=== PATIENT | male | born 1945 | race Caucasian/White ===

== ENCOUNTER → 2024-01-24 12:55 | Outpatient (REF) | payer MEDICARE, SELFPAY | LOC: MRI 3T 12:55 | PROVIDERS: ATTENDING PHYSICIAN Specialist; FAMILY PHYSICIAN Internal Medicine | DX: C61 Malignant neoplasm of prostate (principal) | CPT/HCPCS: 72197; A9575 ==

== ENCOUNTER → 2024-06-26 08:28 | Outpatient (REF) | payer MEDICARE, SELFPAY | LOC: HWRCS 08:28 | PROVIDERS: ATTENDING PHYSICIAN Internal Medicine; FAMILY PHYSICIAN Internal Medicine | DX: I10 Essential (primary) hypertension (principal); Z95.2 Presence of prosthetic heart valve | CPT/HCPCS: 93306 ==

== ENCOUNTER 2025-03-14 05:29 | Inpatient (IN) | payer MEDICARE, SELFPAY ==
[2025-03-14] VITALS (12 sets, daily range): BP systolic 134–166; BP diastolic 76–90; PULSE 64; O2SAT 98; BMI 28.8
--- NOTE | 2025-03-14 02:47 | ED.CVA ---
History of Present Illness
General
Chief Complaint: CVA/TIA Symptoms
Source: patient, spouse and ambulance crew
Exam Limitations: none
Time Seen by Provider: 03/14/25 02:37
Nursing documentation reviewed up to this point in time: agreed with
Onset of Stroke Symptoms
Onset of symptoms known: No
Date of onset of symptoms: 03/14/25
Time pt last seen normal is known: Yes
Date last time pt seen normal: 03/13/25
Time last time pt seen normal: 21:30
History of Present Illness
History of Present Illness:
80-year-old male with a past medical history of hypertension, hyperlipidemia, atrial fibrillation (status post ablation 10 years ago, no issues since reportedly, not on blood thinners), aortic stenosis status post AVR who presents to the ER with his
for evaluation of weakness, balance issues, speech disturbance. Patient reports that he was in his normal state of health when he went to bed last night at 9:30 PM. He says that he woke up to go to the bathroom at 12:45 AM and noticed that he
was having left-sided weakness, balance issues, speech issues. EMS was called to bring him to the hospital. He reports symptoms are improving but have not resolved. Complains of some slurred speech, balance issues and some persistent weakness arm
greater than leg. He does work some mild dizziness. He denies any headache or neck pain. He denies feeling numbness in his extremities or in his face. He denies any change in his vision. He says he has never had similar symptoms in the past.
He denies being on any blood thinners.
Review of Systems
Review of Systems
All Other Systems: ROS reviewed and negative except as documented in HPI and ROS
Constitutional: Denies fever
Respiratory: Denies trouble breathing
Cardiac: Denies chest pain
ABD/GI: Denies abdominal pain
: Denies flank pain
Musculoskeletal: Denies neck pain or back pain
Neurological: Reports dizzy and weakness; Denies headache or numbness
Phy Exam
Physical Exam
Physical Exam:
General: Awake, alert, oriented x3; no acute distress
Head: Normocephalic, atraumatic
Eyes: Conjunctiva normal, EOMI
Throat: Airway intact, handling secretions
Neck: Trachea midline, supple without meningismus
Lungs: Clear to auscultation bilaterally, no wheezing, rales, rhonchi
Heart: Regular rate and rhythm, no murmurs, gallops, or rubs
Abd: Soft, non distended, nontender
Neuro: Patient has mild right facial droop; cranial nerves otherwise intact; no limb ataxia; no drift in the lower extremities, very slight drift left upper extremity and 4/5 strength on senior cyber intelligence analyst strength in the left upper extremity compared to 5/5 on
the right, sensory exam grossly intact, mild dysarthria but no aphasia
Skin: no rash
Extremities: No edema in extremities, equal pulses in all extremities
Scores
NIH Stroke Score
Level of Consciousness: 0 - Alert
LOC Questions: 0-Answers both correctly
LOC Commands: 0-Performs both correctly
Best Horizontal Gaze: 0-Normal
Visual Tripp: 0=Normal, no visual loss
Facial Palsy: 1=Minor paralysis
Motor - Right Arm: 0=No drift 10 seconds
Motor - Left Arm: 1=Drift < 10 seconds
Motor - Right Le-No drift 5 seconds
Motor - Left Le-No drift 5 seconds
Limb Ataxia: 0-Absent
Sensation: 0-Normal
Best Language: 0-No aphasia
Dysarthria: 1-Mild slurring
Extinction and Inattention: 0-No abnormality
NIH Total Score:: 3
Thrombolytic Contraindication
Inclusion and Exclusion criteria reviewed: Yes
Reasons for NON-Tx with Thrombolytics ABSOLUTE Exclusions: Greater than 4.5 hrs from onset of sxs
Course
Orders/Labs/Results
Orders:
Orders
03/14/25 02:43
CT HEAD STROKE ALERT W/o Cont Urgent
Comment:
Reason For Exam: L SIDED WEAKNESS
CT HEAD/NECK ANG STROKE ALERT Urgent
Comment:
Reason For Exam: L SIDED WEAKNESS
03/14/25 02:45
Complete Blood Count/With Diff Urgent
Comprehensive Metabolic Panel Urgent
PTT Urgent
Prothrombin Time Urgent
03/14/25 02:46
Electrocardiogram (*1) Urgent
Reason for Study: TIA/Stroke
CT BRAIN PERF STROKE ALERT Urgent
Comment:
Reason For Exam: left weakness, facial droop
EKG- Treatment ONCE
03/14/25 03:35
Aspirin 325 mg PO NOW STA
Clopidogrel Bisulfate [Plavix] 300 mg PO NOW STA
Abnormal Lab Results
03/14/25
02:45
MCV 94.3 H fL
(80.0-94.0)
MCH 31.5 H pg
(27.0-31.0)
MPV 11.4 H fL
(7.4-10.4)
Absolute Monos (auto) 0.7 H 10^3/uL
(0.1-0.6)
Eosinophils % 7.3 H %
(0-6)
BUN 25 H mg/dl
(9-20)
Glucose 112 H mg/dl
(70-99)
03/14/25 02:45
03/14/25 02:45
Vital Signs
Initial and Last Documented VS:
Initial Vital Signs
Temp Pulse Resp BP Pulse Ox
36.7 C 61 20 166/85 95
03/14/25 02:26 03/14/25 02:26 03/14/25 02:26 03/14/25 02:26 03/14/25 02:26
Last Documented Vital Signs
Temp Pulse Resp BP Pulse Ox
36.7 C 59 17 139/83 96
03/14/25 02:26 03/14/25 03:52 03/14/25 03:52 03/14/25 03:52 03/14/25 03:52
MDM/Problems Addressed
Differential Diagnosis Includes:
TIA/CVA, brain bleed, brain mass
MDM/Problems Addressed:
80-year-old male with history as noted presents for evaluation of left-sided weakness and speech disturbance, balance issues. Last normal 9:30 PM before bed, woke up 12:45 AM to go to the bathroom and had symptoms. Symptoms have improved since
waking up but have not resolved. Hypertensive but otherwise normal vitals. Physical exam as above�NIH stroke scale 3. Stroke alert called after my initial assessment. Will send for a CT head, CTA head and neck, CT perfusion study. Usual labs
sent off. Will check EKG. Will discuss with neurology. Reassess after the above.
Discussed with radiologist�CT head negative for any acute hemorrhage, CT angio and perfusion are pending. [facility] for [facility]. Recommended dual antiplatelet
therapy, admission for continued management of suspected acute stroke pending CT angio results to rule out large vessel occlusion.
CTA shows no large vessel occlusion. Reviewed with neurology, proceed with plan to treat with dual antiplatelet therapy. Admit for continued management. Case discussed with hospitalist for admission.
Chronic conditions affecting care:
Atrial fibrillation, hypertension, hyperlipidemia
Acute Exacerbation and/or Progression of Chronic Illness:
Acutely hypertensive�permissive in the setting of suspected stroke
Acute Exacerbation and/or Progression of Chronic Illness: HTN
*Radiology
Radiology exam reviewed: preliminary read by ED provider and radiology read reviewed
*Pulse Oximetry
SaO2: 95
Oxygen Mode of Delivery: Room air
Patient hypoxic: no (95%)
*Critical Care Note
Total Time (30-74mins, 75-104mins- exclusive of procedures): Not Applicable
Data Reviewed
Source: patient and spouse
Patient Management
Discussion with other providers: Hospitalist (Discussed with hospitalist) and Enlisted Advisor (Discussed with neurology)
Escalation/DeEscalation of care consider admission/obs:
Admission indicated
ED Attending Note
-
Portions of this chart may have been created with voice recognition software.� Occasional wrong word or��sound alike� substitutions may have occurred due to the inherent limitations of voice recognition software.
Discharge Plan
Departure
Patient Disposition: Admit
Date of Disposition: 03/14/25
Time of Disposition: 04:04
Admit to doctor: Otis
Presentation/result/management discussed w/ accepting MD/DO: Hospitalist
Discharge Problem:
Acute CVA (cerebrovascular accident)
Prescriptions:
No Action
aspirin 81 mg Tablet
81 mg PO Q48H
Lotemax
ophthalmic (eye) DAILY
Rx Instructions:
both eyes
amlodipine
PO DAILY
atorvastatin
PO DAILY
Rx Instructions:
unknown dosage
finasteride
PO DAILY
latanoprost
ophthalmic (eye) HS
metoprolol succinate
PO DAILY
timolol
ophthalmic (eye) DAILY
Referrals:
Dileep Smith MD [Family Provider, Cardiology]
Interventions
Interventions:
*Risk Screen - Suicide Last Done: 03/14/25 02:26
*General Assessment Last Done: 03/14/25 02:26
*Neglect/Abuse Screening Last Done: 03/14/25 02:26
*ED- Fall Risk Assessment Last Done: 03/14/25 02:26
*ED COVID-19 Vaccine History Last Done: 03/14/25 02:26
ED- Neurological Assessment Last Done: 03/14/25 02:45
ED Swallowing Screen Last Done: 03/14/25 03:44
Discharge Date and Time
Print Language: ANGUILLAN
[2025-03-14 03:21] LABS: INR 0.96; PT 13.3 Sec (11.4-14.6)
[2025-03-14 03:22] LABS: APTT 25.5 Sec (23.4-35.0)
[2025-03-14 03:33] LABS: ALT (SGPT) 26 U/L (0-50); AST (SGOT) 23 U/L (17-59); Albumin 4.4 g/dl (3.5-5.0); Alkaline Phosphatase 49 U/L (38-126); Blood Urea Nitrogen 25 mg/dl (9-20); Calcium 9.7 mg/dl (8.4-10.2); Carbon Dioxide 30 mmol/L (22-30); Chloride 105 mmol/L (98-107); Glucose 112 mg/dl (70-99); Potassium 4.5 mmol/L (3.5-5.1); Sodium 140 mmol/L (135-145); Total Protein 6.9 g/dl (6.3-8.2); eGFR > 60.00
[2025-03-14 03:40] LABS: Hematocrit 50.0 % (39.0-52.0); Hemoglobin 16.7 g/dL (13.0-18.0); Mean Corp Hgb Conc. 33.4 g/dL (33.0-37.0); Mean Corpuscular Volume 94.3 fL (80.0-94.0); Nucleated Red Blood Cells % 0 % (-); Platelet Count 203 10^3/uL (130-400); Red Cell Dist. Width 13.2 % (11.5-14.5)
[2025-03-14] MEDS: ASPIRIN 325 MG PO (03:46)
[2025-03-14] MEDS: PLAVIX 300 MG PO (03:46)
--- NOTE | 2025-03-14 05:18 | HPS.HSE ---
Family Physician
-
Family Physician: Dileep Smith MD
Chief Complaint
-
L weakness
History of Present Illness
Patient is a 80y L hand dominant M with PMH significant for aortic stenosis, hypertension and A-Flutter s/p ablation who presents to ED complaining of left sided weakness and slurred speech. Patient states that he felt well this PM when he went
to bed around 9-9:30. He woke at 12:20 AM with difficulty moving his L side. He lie there for about one hour waiting for symptoms to improve. When they did not he woke his and 911 was called.
Patient noted weakness of the L arm and L leg. He noted slurred / thickened speech. His symptoms have all significantly improved from initial onset and he feels 'about 90%' at present.
Patient denies any prior h/o stroke, SC, etc.
Medical History
Past Medical History
Past Medical History: Reports Other
Additional Past Medical History:
Aortic Stenosis s/p AVR
Atrial Flutter s/p Ablation
Hypertension
Prostate Cancer
Glaucoma
Past Surgical History: Reports Other
Additional Past Surgical History:
BioAVR (x 2)
A-Flutter Ablation
Corneal Transplant
Retina Surgery
Achilles Tendon Repair
Appendectomy
Social History
Tobacco: Non-smoker
Alcohol: Daily (1-2 glasses of wine daily.)
Drug: None
Family History
Family History: Not pertinent
Allergies / Home Medications
Allergies reflects when Allergies were last updated in [employer].
Home Medications with original date entered in [employer]
Allergy/Medication List:
Allergies
Allergy/AdvReac Type Severity Reaction Status Date / Time
No Known Allergies Allergy Verified 03/14/25 02:40
Home Medications
Patient does not know his meds with dose / frequency.
If medication reconciliation has not been performed, why?: Medication List N/A
Review of Systems
-
History Source: Patient
A 12 point ROS was completed and negative except as noted: Yes
Constitutional: Denies Fever or Chills
Respiratory: Denies Cough or Trouble Breathing
Cardiac: Denies Chest Pain or Palpitations
Abdomen/GI: Denies Abdominal Pain, Nausea, Vomiting or Diarrhea
: Denies Dysuria or Frequency
Musculoskeletal: Denies Joint Pain or Edema
Neurological: Reports Weakness and Other (slurred speech.); Denies Dizzy or Headache
Physical Exam
Vital Signs
Vital Signs
Temp Pulse Resp BP Pulse Ox
98.1 F 60 22 134/80 91
03/14/25 02:26 03/14/25 05:00 03/14/25 05:00 03/14/25 05:00 03/14/25 05:00
Physical Exam
General: Other (80y M in no acute distress.)
HEENT: Moist mucous membranes and PERRLA
Respiratory: Clear; No Wheezes, Rales or Rhonchi
Cardiac: S1/S2, Regular Rhythm and Murmur (II/ GENA)
GI: Soft, Non Tender, Non Distended and Normal Bowel Sounds
Musculoskeletal: No Clubbing, No Cyanosis and No Edema
Neuro: AO x 3 and Other (Mild L facial droop. Mild dysarthria. Strength seems intact / symmetric at present. Sensation intact.)
Laboratory Results
-
03/14/25 02:45
03/14/25 02:45
Laboratory Results
PT 13.3 Sec (11.4-14.6) 03/14/25 02:45
INR 0.96 03/14/25 02:45
APTT 25.5 Sec (23.4-35.0) 03/14/25 02:45
Total Bilirubin 0.8 mg/dl (0.2-1.3) 03/14/25 02:45
AST 23 U/L (17-59) 03/14/25 02:45
ALT 26 U/L (0-50) 03/14/25 02:45
Alkaline Phosphatase 49 U/L (38-126) 03/14/25 02:45
Impression/Plan
-
A/P: Patient is a 80y M with PMH significant for hypertension, aortic stenosis and A-Flutter (s/p ablation) who presents to ED after waking early this AM with L sided weakness.
CVA / TIA
- Admit for further evaluation and treatment.
- Symptoms certainly sound c/w CVA with dysarthria, L upper and lower extremity weakness and ataxia.
- ED reviewed with [facility] and TNK not recommended based on last known normal / out of window.
- Thankfully, symptoms are significantly improved at present - though not fully resolved.
- DAPT. Check lipids, A1C. etc.
- MRI in AM.
- Neurology evaluation.
- PT / OT / Speech evaluations.
- Need formal med rec and then resume / continue BP medications as appropriate.
- Follow serial exams for any new / worsening symptoms.
Hypertension
- Reconcile meds as noted above. Adjust regimen as needed for goal of normotension prior to discharge.
History of A-Flutter s/p Ablation
Aortic Stenosis s/p AVR x 2
- Check Echo.
- Monitor on telemetry for any evidence of arrhythmia.
Prostate Cancer
- Bladder scan protocol.
- Not on any active treatment beyond finasteride.
DVT Prophylaxis: SCDs
Code Status: Full
[2025-03-14 06:02] LABS: Hematocrit 48.2 % (39.0-52.0); Hemoglobin 16.4 g/dL (13.0-18.0); Mean Corp Hgb Conc. 34.0 g/dL (33.0-37.0); Mean Corpuscular Volume 90.9 fL (80.0-94.0); Platelet Count 190 10^3/uL (130-400); Red Cell Dist. Width 13.2 % (11.5-14.5)
[2025-03-14 06:25] LABS: Blood Urea Nitrogen 19 mg/dl (9-20); Calcium 9.0 mg/dl (8.4-10.2); Carbon Dioxide 27 mmol/L (22-30); Chloride 106 mmol/L (98-107); Glucose 107 mg/dl (70-99); HDL Cholesterol 56 mg/dl; LDL Cholesterol, Calculated 69 mg/dl; Potassium 4.3 mmol/L (3.5-5.1); Sodium 138 mmol/L (135-145); Very Low Density Lipoprotein 24 mg/dl (0-30); eGFR > 60.00
--- NOTE | 2025-03-14 07:45 | W.PN.HOSP.TC ---
Addendum entered and electronically signed by Warner Ortega MD 03/14/25 08:25:
Moderate to large volume of calcified plaque in the carotid bulb. Estimated luminal diameter reduction of less than 50%. - cont ASA/Statin
Original Note:
Today's Communication/Plan
-
see PN
Assessment / Plan
Assessment / Plan
80yo M with PMHx of CAD s/p CABG, glaucoma, HLD, HTN, BPH came with LUE and LLE weakness and dysarthria started after he woke up. CTA head showed no LVH and no clinically significant carotid stenosis. Symptoms started to improve. Admitted for CVA.
Patient was not compliant with ASA at home taking it q48h
A/P:
#CVA
Neurochecks
ASA, Plavix, Statin, emphasized importance to adhere to Rx schedule
permissive HTN during firtst 24h
Echo
Telemetry without clinically significant arrhythmia
Neurology consult
MRI brain
PT/OT
VENDOR MANAGEMENT CONSULTANT
LDL 69
HgbA1c and TSH pending
#CAD, s/p CABG
#Essential HTN
#Glaucoma
cont home meds
DVT ppx SCDs
Full code
I have spent at least 56min reviewing chart, test results, communication with consultants and providing direct patient care
Anticipated Discharge: 24 - 48 hours
Subjective/Interval History
-
Date of Service: March 14, 2025
Objective Data
-
Labs:
Laboratory Results
03/14/25 03/14/25
02:45 05:33
WBC 9.3 8.0
Hgb 16.7 16.4
Hct 50.0 48.2
Plt Count 203 190
PT 13.3
INR 0.96
APTT 25.5
Sodium 140 138
Potassium 4.5 4.3
Chloride 105 106
Carbon Dioxide 30 27
BUN 25 H 19
Creatinine 1.0 0.9
Glucose 112 H 107 H
Calcium 9.7 9.0
Total Bilirubin 0.8
AST 23
ALT 26
Alkaline Phosphatase 49
Vital Signs:
Vital Signs
Temp Pulse Resp BP Pulse Ox
97.7 F 60 18 152/80 96
03/14/25 06:45 03/14/25 06:45 03/14/25 06:45 03/14/25 06:45 03/14/25 06:45
I&O
03/13/25 03/14/25 03/15/25
06:59 06:59 06:59
Output Total 325 / 325
Balance -325 / -325
Review of Systems
-
History Source: Patient
All other systems: Reviewed and negative
Physical Exam
-
General: No Apparent Distress
HEENT: Normocephalic
Respiratory: Clear to Auscultation
Cardiac: Regular Rhythm
GI: Soft
Neuro: Awake, Alert, Oriented and AO x 3
Hematologic / Lymphatic: Other (LUE and LLE strength 4/5, mild assymetry of the face )
Psych: Calm
[2025-03-14 09:18] LABS: Glycohemoglobin (HgbA1c) 5.7 % (4.0-5.6)
--- NOTE | 2025-03-14 09:21 | CON.NEURO4 ---
Addendum entered and electronically signed by Anthony Butt MD 03/23/25 15:33:
Diagnosis of cytotoxic edema (minimally seen by MRI of brain) was appropriate.
Addendum entered and electronically signed by Anthony Butt MD 03/14/25 14:07:
Studies reviewed.
I have personally examined the patient. I reviewed and agree with the LATEX FOAM WORKER's Note.
My addenda:
Awake, alert, interactive. No acute distress.
Speech minimally thick, at times.
Follows 2-step requests w/o difficulty. No tremor.
Extra-ocular movements grossly intact.
Facial movements full and symmetric. Hearing intact to normal conversational volume.
Normal UE movements bilaterally.
Neck: full ROM.
Chest: no dyspnea
Heart: no JVD
Ext: (-) Clubbing, (-) Cyanosis, (-) Edema
IMPRESSIONS/RECOMMENDATIONS:
Abrupt onset of dominant side (left-sided) weakness with dysarthria
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
Would avoid use of dual antiplatelet therapy due to the above suggested amyloid angiopathy
Instead, would advance the patient's at home aspirin 81 mg every other day to dosing of aspirin 81 mg/day
Advance atorvastatin from 10 mg to 20 mg
Continue rehabilitation evaluations and treatment
D/W patient
All questions answered.
Will continue to follow as outpatient.
Original Note:
Documented by User: Zulma Araya NP 03/14/25 11:10
Consultation - Neurology 4
-
CONSULTING PHYSICIAN: Anthony Butt MD
REFERRING PHYSICIAN: Hospitalists/Dr. Berg
DICTATED BY: BENI Murphy
DATE/TIME OF REQUEST: 03/14/25
DATE/TIME OF CONSULTATION: 03/14/25
Reason for Consultation: Left-sided weakness, dysarthria
History of Present Illness:
This is a 80-year-old left-handed male who has presented to the hospital with report of left-sided weakness and dysarthria. Patient reports that he went to bed last night (03/13/25) in his usual state around 0. He woke up at 0030 (03/14/25) to use
the bathroom and noticed that his left side was weak. His left arm felt heavy and his left leg wasn't functioning properly to walk. He laid in bed for some time waiting for symptoms to resolve, when they didn't he woke up his and noted that his
speech was dysarthric. They then called 911. [address] head and CTA head/neck were obtained on arrival and are negative for any acute abnormalities. CT perfusion was obtained and demonstrates a 9mm penumbra, no core, oddly in the right occipital lobe.
NIHSS was 3 for mild left facial drooping, left arm drift, and slurred speech. He reports taking an aspirin 81mg every other day for cardiac purposes. He has a history of Aflutter s/p ablation. He was evaluated by Tele[facility]roke and deemed not a
candidate for TNK due to outside of time window, no LVO for IAT. He was loaded with aspirin and clopidogrel in the ER.
He reports that currently his symptoms have improved but are still persistent. He knows what he wants to say but his speech feels thick/slurred. His left arm and left leg still feel heavy. He denies any headache, dizziness, vision changes,
swallowing difficulty, and numbness. He denies any history of stroke or events like this in the past.
Past Medical History: HTN, HLD, Atrial flutter s/p ablation, aortic stenosis, first degree AV block, prostate cancer, macular degeneration, retinal detachment R, corneal disease
Surgical History: AVR x2, cardiac ablation, retinal detachment repair, partial corneal transplants, cataracts removed b/l, Achilles tendon repair, appendectomy
Family History: Father- stroke.
Social History: Denies tobacco and illicit drug use. 1-2 glasses of wine daily.
Allergies: No known allergies.
Home Medications: See below.
Review of Symptoms:
Patient denies any fever, headache, chest pain, shortness of breath, GI or symptoms.
�Per the HPI.�All systems are reviewed negative except above.
Physical Exam:
The patient is afebrile, abdomen is nondistended, breathing is unlabored, skin is warm and dry, no edema.
NIH Stroke Scale:
I performed the NIH stroke scale on the patient on 03/14/25 at 0930. The patient scored 3 points on the NIH stroke scale assessment, which were assigned as follows:
Neurologic Examination:
The patient is awake, alert and oriented x 3. He is able to follow commands and answer questions appropriately. There is no aphasia. There is moderate dysarthria. On cranial nerve assessment, left pupils is 3 mm, right pupil is 4 and
irregular/surgical, reactive to light and accommodation. Visual tripp appear full. Extraocular movements are intact. Facial sensations are intact and bilaterally symmetrical, there is no facial asymmetry. Hearing is diminished bilaterally to normal
conversation volume. Tongue palate and uvula are midline. Sternocleidomastoid strengths are full bilaterally. Motor strengths are 5/5 right upper and lower extremities, 5-/5 left upper and lower on medical research [place] scale. There is very
slight drift in the LUE. Question of myoclonus in the LUE on exertion. Deep tendon reflexes are 1+ bilateral upper and lower extremities and Babinski is absent bilaterally. There was no extinction noted on double simultaneous stimulation.
Coordination is mildly ataxic by finger to nose in the LUE.
Lab Results: See below.
Neuro Imaging:
1. CT Head 03/14/25: No acute cranial hemorrhage. Mild to moderate chronic microvascular white matter ischemic disease. Aspects score: 10. Increased attenuation of the basilar artery and proximal right middle cerebral artery. Such findings are
nonspecific, and may be artifactual in nature, though has also been described in thrombosis. There is also a small calcified plaque of the proximal left MCA. Therefore, CT angiogram recommend further characterization.
2. CTA head/neck 03/14/25: Cervical carotid plaque, as described, though without hemodynamically significant stenosis, occlusion, or dissection. No big sandy of [place] region aneurysm or stenosis. No cerebral artery stenosis, thrombus, or occlusion.
3. CT perfusion 03/14/25: Mismatch volume 9.
Differentials for the patient's presentation include:
1. Likely an acute right hemisphere ischemic stroke producing symptoms in this left-handed individual.
Patient has the following risk factors for their symptoms: HTN, HLD, age, Atrial flutter
IV Tenecteplase/IAT candidacy: He was evaluated by TeleStroke and deemed not a candidate for TNK due to outside of time window, no LVO for IAT.
Recommendations:
-Continue DAPT with aspirin 81mg and clopidogrel 75mg daily for 21 days. After 21 days, discontinue clopidogrel and continue aspirin 81mg daily only, indefinitely. Would check aspirin efficacy after on treatment daily for 7 days.
-Permissive hypertension SBP<220, DBP<120 until midnight tonight, then goal normotension.
-MRI brain noncontrast pending.
-Based on MRI brain imaging, may recommend ILR cardiac monitoring.
-LDL goal <70. LDL is 69. Increasing home atorvastatin from 10mg to 20mg as LDL is at goal but borderline. High dose statin not needed due to LDL at goal currently.
-Goal normoglycemia, hbA1c is 5.7.
-PT/OT/ST evaluations.
-NIHSS and neurological checks per unit guidelines.
-Provide patient with a stroke education packet.
-DVT prophylaxis.
Discussed patient care with: Dr. Butt, the patient
Vital Signs and Labs
-
Vital Signs and Labs:
Vital Signs
Temp Pulse Resp BP Pulse Ox
97.7 F 60 18 152/80 96
03/14/25 06:45 03/14/25 06:45 03/14/25 06:45 03/14/25 06:45 03/14/25 06:45
Lab Results
03/14/25 05:33
03/14/25 05:33
PT 13.3 Sec (11.4-14.6) 03/14/25 02:45
INR 0.96 03/14/25 02:45
APTT 25.5 Sec (23.4-35.0) 03/14/25 02:45
Sodium 138 mmol/L (135-145) 03/14/25 05:33
Potassium 4.3 mmol/L (3.5-5.1) 03/14/25 05:33
BUN 19 mg/dl (9-20) 03/14/25 05:33
Glucose 107 mg/dl (70-99) H 03/14/25 05:33
Calcium 9.0 mg/dl (8.4-10.2) 03/14/25 05:33
LDL Cholesterol, Calc 69 mg/dl 03/14/25 05:33
Medications
-
Medications:
Generic Name Dose Route Start Last Admin
Trade Name Freq PRN Reason Stop Dose Admin
Acetaminophen 650 mg 03/14/25 06:41
Acetaminophen 325 Mg Tablet PO 04/11/25 06:40
Q4HPRN PRN
Mild Pain / Temp > 101
Amlodipine Besylate 5 mg 03/14/25 08:00
Amlodipine 5 Mg Tablet PO 04/11/25 07:59
DAILY ALLY
Aspirin 81 mg 03/15/25 08:00
Aspirin 81 Mg Chewable Tablet PO 04/12/25 07:59
DAILY ALLY
Clopidogrel Bisulfate 75 mg 03/15/25 08:00
Clopidogrel 75 Mg Tablet PO 04/12/25 07:59
DAILY ALLY
NIH Stroke Score
Subsequent NIH Scale
Date of Subsequent NIH Scale: 03/14/25
Time of Subsequent NIH Scale: 09:30
NIH Stroke Score
Level of Consciousness: 0 - Alert
LOC Questions: 0-Answers both correctly
LOC Commands: 0-Performs both correctly
Best Horizontal Gaze: 0-Normal
Visual Tripp: 0=Normal, no visual loss
Facial Palsy: 0=Normal, symmetrical
Motor - Right Arm: 0=No drift 10 seconds
Motor - Left Arm: 1=Drift < 10 seconds
Motor - Right Le-No drift 5 seconds
Motor - Left Le-No drift 5 seconds
Limb Ataxia: 1-Present in one limb
Sensation: 0-Normal
Best Language: 0-No aphasia
Dysarthria: 1-Mild slurring
Extinction and Inattention: 0-No abnormality
NIH Total Score:: 3
Modified Siddhartha (mRS) Score
Modified [place] Scale (mRS): Slight disability. Able to look after own affairs.
Score: 2
Alteplase Contraindication
Inclusion and Exclusion criteria reviewed: Yes
IAT Contraindications: NIHSS < 6

Documented by User: Anthony Butt MD 03/14/25 11:58
NIH Stroke Score
NIH Stroke Score
NIH Total Score:: 3
Modified [place] (mRS) Score
Score: 2
[2025-03-14] MEDS: NORVASC 5 MG PO (09:35)
[2025-03-14] MEDS: ATIVAN 1 MG PO (09:42)
--- NOTE | 2025-03-14 09:57 | PTOTSP ---
Dysphagia Evaluation
Suspect oral/pharyngeal swallowing is grossly WFL based on clinical bedside swallowing evaluation.
Signs of mild dysarthria persists. No signs concerning for aphasia or cognitive deficits in conversation.
Recommend:
1. Regular, Thin liquids
2. General aspiration precautions
3. Medications as best tolerated
4. Will follow up for further cognitive linguistic evaluation as appropriate pending results of MRI of Brain
[2025-03-14] MEDS: VITAMIN B1 100 MG PO (10:02)
--- NOTE | 2025-03-14 14:12 | CM ---
Alert awake oriented patient who lives with Angelica in a condo with 0 step to enter and elevator. He is independent in driving and all ADLs. No adaptive devices.He will need PT OT to assist in dc planning.Spoke with Angelica for IA.
[facility] VN/SNF hx
Pharmacy [facility]
PCP DR Catalina Campos [facility]
PLAN Will need PT OT for discharge planning . PT OT ordered
[2025-03-14] MEDS: LIPITOR 20 MG PO (18:00)
[2025-03-14] MEDS: XALATAN OPHTHALMIC SOLUTION 1 DROP BOTH EYES (21:37)
[2025-03-15] VITALS (7 sets, daily range): BP systolic 127–147; BP diastolic 79–89; PULSE 96; O2SAT 94
[2025-03-15] MEDS: VITAMIN B1 100 MG PO (08:11)
[2025-03-15] MEDS: LOW STRENGTH ASPIRIN 81 MG PO (08:11)
[2025-03-15] MEDS: NORVASC 5 MG PO (08:11)
--- NOTE | 2025-03-15 10:18 | W.PN.HOSP.TC ---
Today's Communication/Plan
-
Neurology re-eval for spinal cord findings
DC to acute rehab when accepted, Physiatry consult placed
Assessment / Plan
Assessment / Plan
80yo M with PMHx of bioprosthetic AV, CAD s/p CABG, glaucoma, HLD, HTN, BPH came with LUE and LLE weakness and dysarthria started after he woke up. CTA head showed no LVH and no clinically significant carotid stenosis. Symptoms started to improve.
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
Patient was not compliant with ASA at home taking it q48h
A/P:
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
Neurochecks
ASA (daily), Statin, emphasized importance to adhere to Rx schedule
permissive HTN during firtst 24h
Echo: EF 56%, well seated AV with mild paravalvular leak - discussed with , will need outpatient follow up
Telemetry without clinically significant arrhythmia, episodes of sinus arrhythmia seen vs artifact.
Neurology consult
MRI brain: 1.3 mm ACUTE ISCHEMIC INFARCT in the LATERAL RIGHT THALAMUS and posterior limb of the RIGHT INTERNAL CAPSULE. 5 mm chronic ischemic infarct in the right cerebellar hemisphere.
PT/OT: acute rehab recommended, Physiatry consult placed
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
LDL 69
HgbA1c 5.7% and TSH WNL
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
outpatient spinal Sx referral and re-evaluation by neurologist requested as per discussion with on-call physician. Referral to be provided
#CAD, s/p CABG
#Essential HTN
#Glaucoma
#Bioprosthetic AV
cont home meds
Follow up with for mild paravalvular leak is new
DVT ppx SCDs
Full code
I have spent at least 51min reviewing chart, test results, communication with consultants and providing direct patient care
Anticipated Discharge: 24 - 48 hours
Subjective/Interval History
-
Date of Service: March 15, 2025
Objective Data
-
Vital Signs:
Vital Signs
Temp Pulse Resp BP Pulse Ox
97.8 F 67 16 130/80 95
03/15/25 07:15 03/15/25 08:11 03/15/25 07:15 03/15/25 08:11 03/15/25 07:15
I&O
03/14/25 03/15/25 03/16/25
06:59 06:59 06:59
Intake Total 1200 / 1200
Output Total 325 / 325 2425 / 2425
Balance -325 / -325 -1225 / -1225
Review of Systems
-
History Source: Patient
All other systems: Reviewed and negative
Physical Exam
-
General: Comfortable
HEENT: Normocephalic
Cardiac: Regular Rhythm
GI: Soft, Nontender and Nondistended
Neuro: Awake, Alert, Oriented and AO x 3
Psych: Calm
--- NOTE | 2025-03-15 11:56 | CM ---
PT rec acute rehab
Physiatry consult
options reviewed with . Would like Cardenas here at
referral [facility]
PLAN: Acute rehab pending bed availability when stable
[2025-03-15] MEDS: NON-FORMULARY ITEM 1 DROP BOTH EYES (12:09)
[2025-03-15] MEDS: LIPITOR 20 MG PO (17:13)
--- NOTE | 2025-03-15 19:28 | W.PN.NEURO.1 ---
Today's Communication / Plan
-
no indication for spine surgery given no myelopathy on exam
Neuro Assessment/Plan
Assessment
Neuro Imaging:
1. CT Head 03/14/25: No acute cranial hemorrhage. Mild to moderate chronic microvascular white matter ischemic disease. Aspects score: 10. Increased attenuation of the basilar artery and proximal right middle cerebral artery. Such findings are
nonspecific, and may be artifactual in nature, though has also been described in thrombosis. There is also a small calcified plaque of the proximal left MCA. Therefore, CT angiogram recommend further characterization.
2. CTA head/neck 03/14/25: Cervical carotid plaque, as described, though without hemodynamically significant stenosis, occlusion, or dissection. No [place] of [place] region aneurysm or stenosis. No cerebral artery stenosis, thrombus, or occlusion.
3. CT perfusion 03/14/25: core 0, penumbra 9 cc
MRI brain imgs rev'd, right thalamic stroke, ~4 microbleeds suggestive amylod angiopathy. report also showing Severe discogenic degenerative disease at C3/C4 and C4/C5 with small disc-osteophyte complexes causing mild spinal cord compression and
central canal stenosis.
Patient has the following risk factors for their symptoms: HTN, HLD, age, Atrial flutter
IV Tenecteplase/IAT candidacy: He was evaluated by TeleStroke and deemed not a candidate for TNK due to outside of time window, no LVO for IAT.
he was loaded with aspirin and plavix in the ED which was safe given fewer than 10 microbleeds, though decision was for no DAPT
Lipitor increased to 20
He has no myelopathy on exam, so no indication for spine surgery
Subjective/Objective
Subjective Data
Date of Service: March 15, 2025
called to evaluate cervical spine findings on MRI brain
persisting mild left (dominant) sided weakness.
patient denied any cognitive symptoms or decreased function, he reads 4 books at a time and does word puzzles without difficulty
Objective Data
Vital Signs
Temp Pulse Resp BP Pulse Ox
36.8 C 88 18 127/88 95
03/15/25 19:14 03/15/25 19:14 03/15/25 19:14 03/15/25 19:14 03/15/25 19:14
Lab Results
03/14/25 05:33
03/14/25 05:33
PT 13.3 Sec (11.4-14.6) 03/14/25 02:45
INR 0.96 03/14/25 02:45
APTT 25.5 Sec (23.4-35.0) 03/14/25 02:45
Sodium 138 mmol/L (135-145) 03/14/25 05:33
Potassium 4.3 mmol/L (3.5-5.1) 03/14/25 05:33
BUN 19 mg/dl (9-20) 03/14/25 05:33
Glucose 107 mg/dl (70-99) H 03/14/25 05:33
Calcium 9.0 mg/dl (8.4-10.2) 03/14/25 05:33
LDL Cholesterol, Calc 69 mg/dl 03/14/25 05:33
Patient Allergies
No Known Allergies Allergy (Verified 03/14/25 02:40)
Physical Exam
-
AAOx3, speech clear, language intact
VFF, left pupil 3mm, right pupil 4 mm, irregular/surgical, EOMI, Left NL flattening
LUE/LE 5-/5, RUE/LE full strength
DTR 1+ x4 ext
[2025-03-15] MEDS: XALATAN OPHTHALMIC SOLUTION 1 DROP BOTH EYES (21:28)
[2025-03-16] VITALS (7 sets, daily range): BP systolic 136–152; BP diastolic 78–95; PULSE 82; O2SAT 95
[2025-03-16] MEDS: NORVASC 5 MG PO (09:07)
[2025-03-16] MEDS: VITAMIN B1 100 MG PO (09:07)
[2025-03-16] MEDS: LOW STRENGTH ASPIRIN 81 MG PO (09:07)
[2025-03-16] MEDS: NON-FORMULARY ITEM 1 DROP BOTH EYES (09:07)
--- NOTE | 2025-03-16 11:23 | W.PN.HOSP.TC ---
Today's Communication/Plan
-
pending physiatry consult and d/c to acute rehab
Assessment / Plan
Assessment / Plan
80yo M with PMHx of bioprosthetic AV, CAD s/p CABG, glaucoma, HLD, HTN, BPH came with LUE and LLE weakness and dysarthria started after he woke up. CTA head showed no LVH and no clinically significant carotid stenosis. Symptoms started to improve.
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
Patient was not compliant with ASA at home taking it q48h
A/P:
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
Neurochecks
ASA (daily), Statin, emphasized importance to adhere to Rx schedule
permissive HTN during firtst 24h
Echo: EF 56%, well seated AV with mild paravalvular leak - discussed with , will need outpatient follow up
Telemetry without clinically significant arrhythmia, episodes of sinus arrhythmia seen vs artifact.
Neurology consult
MRI brain: 1.3 mm ACUTE ISCHEMIC INFARCT in the LATERAL RIGHT THALAMUS and posterior limb of the RIGHT INTERNAL CAPSULE. 5 mm chronic ischemic infarct in the right cerebellar hemisphere.
PT/OT: acute rehab recommended, Physiatry consult placed
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
LDL 69
HgbA1c 5.7% and TSH WNL
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
outpatient spinal Sx referral
re-evaluation by neurologist: no clinical signs of myelopathy
#CAD, s/p CABG
#Essential HTN
#Glaucoma
#Bioprosthetic AV
cont home meds
Follow up with for mild paravalvular leak is new
DVT ppx SCDs
Full code
I have spent at least 51min reviewing chart, test results, communication with consultants and providing direct patient care
Anticipated Discharge: Within 24 hours
Subjective/Interval History
-
Date of Service: March 16, 2025
Objective Data
-
Vital Signs:
Vital Signs
Temp Pulse Resp BP Pulse Ox
97.8 F 68 16 152/93 96
03/16/25 07:00 03/16/25 09:07 03/16/25 07:00 03/16/25 09:07 03/16/25 09:10
I&O
03/15/25 03/16/25 03/17/25
06:59 06:59 06:59
Intake Total 1200 / 1200 90 / 90
Output Total 2425 / 2425 575 / 575
Balance -1225 / -1225 -485 / -485
Review of Systems
-
History Source: Patient
All other systems: Reviewed and negative
Physical Exam
-
General: No Apparent Distress
HEENT: Normocephalic
Cardiac: Regular Rhythm
Skin: Warm
Neuro: Awake, Alert, Oriented and AO x 3
Psych: Calm
--- NOTE | 2025-03-16 15:06 | PTOTSP ---
ST Acute Care Evaluation
Pt currently presents with clinical signs of a mild cognitive linguistic impairment characterized by deficits in short term memory, visuospatial skills, and executive functioning. Pt was observed to be occasionally impulsive with completion of tasks
and exhibited some reduced insight into his current deficits.
Recommendations:
- Continuation of PUMP OILER services while admitted as well as upon discharge in the OP setting for cognitive communication tx.
[2025-03-16] MEDS: LIPITOR 20 MG PO (17:19)
[2025-03-16] MEDS: XALATAN OPHTHALMIC SOLUTION 1 DROP BOTH EYES (20:12)
[2025-03-17 03:49] VITALS: BP 142/80
[2025-03-17 07:32] VITALS: BP 139/83
[2025-03-17] MEDS: NORVASC 5 MG PO (08:37)
[2025-03-17] MEDS: LOW STRENGTH ASPIRIN 81 MG PO (08:38)
[2025-03-17] MEDS: NON-FORMULARY ITEM 1 DROP BOTH EYES (08:38)
--- NOTE | 2025-03-17 11:22 | CM ---
MD indicated pt ready for discharge.
Christiano ANGEL reviewed PT OT evals and referral .
OT notified Pt needs OT evals today prior to discharge.
Pt accepted to [facility] today.
[facility]
report [phone]
fax [phone]
PLAN To [place] via wheelchair .
[2025-03-17 11:39] VITALS: BP 130/86
[2025-03-17 12:46] VITALS: BP 150/98; PULSE 101; O2SAT 95
--- NOTE | 2025-03-17 12:59 | W.PN.HOSP.TC ---
Today's Communication/Plan
-
dc to [facility]
Assessment / Plan
Assessment / Plan
80yo M with PMHx of bioprosthetic AV, CAD s/p CABG, glaucoma, HLD, HTN, BPH came with LUE and LLE weakness and dysarthria started after he woke up. CTA head showed no LVH and no clinically significant carotid stenosis. Symptoms started to improve.
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
Patient was not compliant with ASA at home taking it q48h
Assessment:
Acute CVA
- felt related to amyloid angiopathy
- MRI: 1.3 mm ACUTE ISCHEMIC INFARCT in the LATERAL RIGHT THALAMUS and posterior limb of the RIGHT INTERNAL CAPSULE. Moderate white matter leukoaraiosis in both cerebral hemispheres. 5 mm chronic ischemic infarct in the right cerebellar hemisphere.
Tiny chronic intraparenchymal microhemorrhages at the [id number] matter junctions of the superior aspect of both frontal lobes and in the midbrain (probably either amyloid angiopathy or hypertensive microangiopathy.
- Neuro consulted
- continue ASA/Statin - emphasize regimen/compliance
- PT/OT - Acute rehab placement.
Severe discogenic degenerative disease at C3/C4 and C4/C5 with small disc-osteophyte complexes causing mild spinal cord compression and central canal stenosis
- no myelopathy on exam
- outpatient Neuro-surgical referall
CAD s/p CABG
essential HTN
Hx of bioprosthetic AV
- Echo with paravalvular leak
- OP Cardiology f/u
Code: Full
More than 30 minutes spent in discharge including
Final examination of the patient
Summarizing hospital stay
Instructions for continuing care to all relevant caregivers
Preparation of discharge records, prescriptions, and referral forms
Total time spent (in minutes): 41
Anticipated Discharge: Today
Subjective/Interval History
-
Date of Service: March 17, 2025
resting comfortably, no complaints at present
Objective Data
-
Vital Signs:
Vital Signs
Temp Pulse Resp BP Pulse Ox
98.6 F 93 16 130/86 94
03/17/25 11:39 03/17/25 11:39 03/17/25 11:39 03/17/25 11:39 03/17/25 11:39
I&O
03/16/25 03/17/25 03/18/25
06:59 06:59 06:59
Intake Total 90 / 90 900 / 900
Output Total 575 / 575 600 / 600
Balance -485 / -485 300 / 300
Physical Exam
-
General: No Apparent Distress
HEENT: Normocephalic and Atraumatic
Cardiac: Regular Rhythm and S1/S2
Neuro: AO x 3
Psych: Calm
Data Reviewed
-
Total Time Spent with Patient (in minutes): 41
Labs: Labs Reviewed by me
--- NOTE | 2025-03-17 13:08 | W.DCSUMMARY ---
Discharge Summary
Discharge Data
Date of Admission: 03/14/25
Date of Discharge: 03/17/25
-
Pending Results: No
Hospital Course
80 y/o M hx of CAD with CABG, HTN, presented on 03/14 with Left sided weakness and dysarthria upon waking up. He was brought to ER for stroke evaluation. his neuro imaging with CT head and CT-A did not reveal a bleed or large vessel occlusion. He was
lated diagnosed with acute CVA and started on aspirin and statin. A brain MRI confirmed acute CVA in R thalamus and R internal capsule. Patient was evaluated by Neurology who agreed with plan to not start Plavix given evidence of possibly amyloid
angiopathy with tiny chronic intraparenchymal microhemorrhages. An Echo was performed showing a paravalvular leak at the aortic valve and patient will follow up with Cardiology. Physical and Occupational therapy evaluated and recommended [facility].
Patient was discharged to [facility] 03/17/25.
Discharge Plan
-
Patient Disposition: Acute Rehab Facility
Discharge Diagnosis/Procedures: acute CVA
Condition: Fair
Diet: Low Cholesterol
Activity: As tolerated
Bathing Restrictions: None
Other Services: PT and OT
Referrals:
Dileep Smith MD [Family Provider, Cardiology] - in one month
Prescriptions:
New
atorvastatin 20 mg Tablet
20 mg PO QPM Qty: 30 0RF
amlodipine 5 mg Tablet
5 mg PO DAILY Qty: 30 0RF
aspirin 81 mg Tablet,Chewable
81 mg PO DAILY Qty: 100 0RF
Continued
Lotemax
1 drp ophthalmic (eye) DAILY
Rx Instructions:
both eyes
finasteride
5 mg PO DAILY
latanoprost
1 drp ophthalmic (eye) HS
metoprolol succinate
100 mg PO DAILY
timolol
1 drp BOTH EYES DAILY
Discontinued
aspirin 81 mg Tablet
81 mg PO Q48H
amlodipine
5 mg PO DAILY
atorvastatin
10 mg PO DAILY
Rx Instructions:
unknown dosage
Discharge Orders:
Discharge Patient (As Directed); Ordered 03/17/25
Ordered By: Mary Jane Hernandez
Discharge Date and Time
Discharge Date/Time: 03/17/25 16:09
Print Language: ICELANDIC
[2025-03-17 15:51] VITALS: BP 132/89
--- NOTE | 2025-03-17 16:06 | PTCARENOTE ---
Received patient this am AAOX3. Pt tolerated diet well. OOB to chair with assistance x1 and rolling walker. Pt offered no complaints. Made patient comfortable. Cont to assess patient status. Report called to [facility] an patient transferred.
--- NOTE | 2025-03-18 07:25 | PN.CDI ---
CDI
- -
CDI:
Physician Documentation Request
Admit Date: 03/14/25 05:29
Dear Neurology,
Please review the following and provide your response in the progress notes.
Clinical Indicators:
The diagnosis of cytotoxic edema was included in the signed Brain MRI
- 03/14 Neurology 'acute right ischemic stroke of the thalamus in the setting, by MRI of brain'
- 03/14 Brain MRI 'acute ischemic infarct in the lateral right thalamus and posterior limb of the right internal capsule demonstrating restricted diffusion and containing low T1, hyperintense T2/FLAIR signal intensity cytotoxic edema'
Please indicate in your progress notes if you are in agreement that the above diagnosis is valid for this patient:
____ - Cytotoxic edema is a valid diagnosis (Please include it in your progress notes)
____ - Cytotoxic edema is not a valid diagnosis for this patient
____ - Other (please specify)
Use of terms such as suspected, likely, concern for, or probable are acceptable for a diagnosis that is being evaluated, monitored or treated as if it exists and can be coded in the inpatient setting, when documented at the time of discharge.
Thank you,
Juan Harris RN
CDI Specialist
Please use your independent medical judgment in providing your response.
== END 2025-03-17 16:09 | DRG 64 ==
LOC: 4 EAST ACU 05:29
PROVIDERS: ADMITTING PHYSICIAN Hospitalist; ATTENDING PHYSICIAN Internal Medicine; CONSULT PHYSICIAN Psychiatry & Neurology Neurology; EMERGENCY PHYSICIAN Emergency Medicine; FAMILY PHYSICIAN Internal Medicine
DX: I63.89 Other cerebral infarction (principal); G93.6 Cerebral edema; E85.4 Organ-limited amyloidosis; G81.94 Hemiplegia, unspecified affecting left nondominant side; I10 Essential (primary) hypertension; I08.0 Rheumatic disorders of both mitral and aortic valves; R47.1 Dysarthria and anarthria; I68.0 Cerebral amyloid angiopathy; I25.10 Atherosclerotic heart disease of native coronary artery without angina pectoris; E78.5 Hyperlipidemia, unspecified; H40.9 Unspecified glaucoma; I48.91 Unspecified atrial fibrillation; Z79.899 Other long term (current) drug therapy; Z85.46 Personal history of malignant neoplasm of prostate; Z95.1 Presence of aortocoronary bypass graft
CPT/HCPCS: 0042T; 70450; 70496; 70498; 70551; 80048; 80053; 80061; 83036; 84443; 85025; 85027; 85610; 85730; 92523; 92610; 93005; 93306; 97110; 97116; 97163; 97167; 97535; 99285; Q9967

== ENCOUNTER 2025-04-21 15:41 | Outpatient (RCR) | payer MEDICARE, SELFPAY | END 2025-04-21 23:59 | disposition home or self-care (01) | LOC: RPT 15:41 | PROVIDERS: ATTENDING PHYSICIAN Physical Medicine & Rehabilitation; FAMILY PHYSICIAN Family Medicine | DX: I69.354 Hemiplegia and hemiparesis following cerebral infarction affecting left non-dominant side (principal); I69.318 Other symptoms and signs involving cognitive functions following cerebral infarction; I69.311 Memory deficit following cerebral infarction; I69.312 Visuospatial deficit and spatial neglect following cerebral infarction; I69.314 Frontal lobe and executive function deficit following cerebral infarction; I69.322 Dysarthria following cerebral infarction; Z73.6 Limitation of activities due to disability | CPT/HCPCS: 97110; 97112; 97116; 97163; 97530 ==

== ENCOUNTER 2025-05-22 10:47 | Outpatient (RCR) | payer MEDICARE, SELFPAY | END 2025-05-22 23:59 | disposition home or self-care (01) | LOC: RPT 10:47 | PROVIDERS: ATTENDING PHYSICIAN Physical Medicine & Rehabilitation; FAMILY PHYSICIAN Family Medicine | DX: I69.354 Hemiplegia and hemiparesis following cerebral infarction affecting left non-dominant side (principal); I69.318 Other symptoms and signs involving cognitive functions following cerebral infarction; I69.311 Memory deficit following cerebral infarction; I69.312 Visuospatial deficit and spatial neglect following cerebral infarction; I69.314 Frontal lobe and executive function deficit following cerebral infarction; I69.322 Dysarthria following cerebral infarction; Z73.6 Limitation of activities due to disability | CPT/HCPCS: 97110; 97112; 97116; 97530 ==

== ENCOUNTER 2025-06-17 06:50 | Outpatient (RCR) | payer MEDICARE, SELFPAY | END 2025-06-17 23:59 | disposition home or self-care (01) | LOC: RPT 06:50 | PROVIDERS: ATTENDING PHYSICIAN Physical Medicine & Rehabilitation; FAMILY PHYSICIAN Family Medicine | DX: I69.354 Hemiplegia and hemiparesis following cerebral infarction affecting left non-dominant side (principal); I69.318 Other symptoms and signs involving cognitive functions following cerebral infarction; I69.311 Memory deficit following cerebral infarction; I69.312 Visuospatial deficit and spatial neglect following cerebral infarction; I69.314 Frontal lobe and executive function deficit following cerebral infarction; I69.322 Dysarthria following cerebral infarction; Z73.6 Limitation of activities due to disability | CPT/HCPCS: 97110; 97112; 97530 ==

== ENCOUNTER → 2025-06-24 07:54 | Outpatient (REF) | payer MEDICARE, SELFPAY | LOC: HWRCS 07:54 | PROVIDERS: ATTENDING PHYSICIAN Internal Medicine; FAMILY PHYSICIAN Family Medicine | DX: Z95.2 Presence of prosthetic heart valve (principal); I10 Essential (primary) hypertension; I44.0 Atrioventricular block, first degree; I45.10 Unspecified right bundle-branch block | CPT/HCPCS: 93306 ==

== ENCOUNTER 2025-07-03 06:29 | Outpatient (RCR) | payer MEDICARE, SELFPAY | END 2025-07-10 23:59 | disposition home or self-care (01) | LOC: RPT 06:29 | PROVIDERS: ATTENDING PHYSICIAN Physical Medicine & Rehabilitation; FAMILY PHYSICIAN Family Medicine | DX: I69.354 Hemiplegia and hemiparesis following cerebral infarction affecting left non-dominant side (principal); I69.318 Other symptoms and signs involving cognitive functions following cerebral infarction; I69.311 Memory deficit following cerebral infarction; I69.312 Visuospatial deficit and spatial neglect following cerebral infarction; I69.314 Frontal lobe and executive function deficit following cerebral infarction; I69.322 Dysarthria following cerebral infarction; Z73.6 Limitation of activities due to disability | CPT/HCPCS: 97110; 97112; 97530 ==